=== PATIENT | male | born 1985 | race Caucasian/White ===

== ENCOUNTER 2018-01-11 08:02 | Emergency (ER) | payer OTHER ==
[2018-01-11 08:16] VITALS: BP 120/65; PULSE 50; TEMP 98.3; BMI 22.7
--- NOTE | 2018-01-11 08:42 | PDOC ---
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 report pain along the 4th finger. 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 worse with: movement Associated Symptoms: reports: denies symptoms. denies: weakness Aspirin Received prior to arrival: Yes: no aspirin today Past History - Past Medical History Allergies/Adverse Reactions: Allergies Allergy/AdvReac Type Severity Reaction Status Date / Time No Known Allergies Allergy Verified 01/11/18 08:16 Home Medications: Ambulatory Orders Ibuprofen 800 mg PO TID PRN #20 tablet 01/11/18 - Suicide/Smoking/Psychosocial Hx Smoking History: Never smoked Have you smoked in the past 12 months: No Information on smoking cessation initiated: No Hx Alcohol Use: No Drug/Substance Use Hx: No Review of Systems - Review of Systems Able to Perform ROS?: Yes Is the patient limited Pashto proficient: Yes Constitutional: No: Chills, Diaphoresis, Fever, Loss of Appetite, Malaise, Night Sweats, Weakness, Weight Stable, Unintentional Wgt. Loss, Unexplained wgt Loss, Other HEENTM: No: Eye Pain, Blurred Vision, Tearing, Recent change in vision, Double Vision, Cataracts, Ear Pain, Ocular Prothesis, Ear Discharge, Nose Pain, Nose Congestion, Tinnitus, Nose Bleeding, Hearing Loss, Throat Pain, Throat Swelling , Mouth Pain, Dental Problems, Difficulty Swallowing, Mouth Swelling, Other Respiratory: No: Cough, Orthopnea, Shortness of Breath, SOB with Exertion, SOB at Rest, Stridor, Wheezing, Productive cough, Hemoptysis, Other Cardiac (ROS): No: Chest Pain, Edema, Irregular Heart Rate, Lightheadedness, Palpitations, Syncope, Chest Tightness, Other ABD/GI: No: Abdominal Distended, Abd. Pain w/ defecation, Blood Streaked Bowels , Constipated, Diarrhea, Difficulty Swallowing, Nausea, Poor Appetite, Poor Fluid Intake, Rectal Bleeding, Vomiting, Indigestion, Abdominal cramping, Tarry Stools, Other : No: Burning, Dysuria, Discharge, Frequency, Flank Pain, Hematuria, Incontinence, Pain, Urgency, Testicular Mass, Testicular Swelling, Lesions, Testicular Pain, Other Musculoskeletal: Yes: Joint Swelling (right hand), Muscle Pain (right hand). No : Muscle Weakness Integumentary: No: Bruising, Change in Color, Change in Hair/Nails, Dryness, Erythema, Flushing, Lesions, Lumps, Pallor, Pruritus, Rash, Sweating, Other Neurological: No: Headache, Numbness, Paresthesia, Pre-Existing Deficit, Seizure , Tingling, Tremors, Weakness, Unsteady Gait, Ataxia, Dizziness, Other Psychiatric: No: Anxiety, Depression, Frequent Crying, Stressors, Sleep Pattern Change, Emotional Problems, Mood Swings, Change in Appetite, Other Endocrine: No: Excessive Sweating, Flushing, Intolerance to Cold, Intolerance to Heat, Increased Hunger, Increased Thirst, Increased Urine, Unexplained Weight Gain, Unexplained Weight Loss, Change in Weight, Other Hematologic/Lymphatic: No: Anemia, Blood Clots, Easy Bleeding, Easy Bruising, Bleeding Diathesis, Lymph Node Abnormalities, Swollen Glands, Other *Physical Exam - Vital Signs Last Vital Signs Temp Pulse Resp BP Pulse Ox 98.3 F 50 L 18 120/65 100 01/11/18 08:13 01/11/18 08:13 01/11/18 08:13 01/11/18 08:13 01/11/18 08:13 - Physical Exam General Appearance: Yes: Nourished, Appropriately Dressed. No: Apparent Distress HEENT: positive: EOMI, LUCY, Normal ENT Inspection, TMs Normal, Pharynx Normal Neck: positive: Trachea midline, Supple. negative: Tender Respiratory/Chest: positive: Lungs Clear, Normal Breath Sounds. negative: Respiratory Distress, Accessory Muscle Use Cardiovascular: positive: Regular Rhythm, Regular Rate, S1, S2 Gastrointestinal/Abdominal: positive: Normal Bowel Sounds Musculoskeletal: positive: Normal Inspection, Other (moderate tenderness over 4th metacarpal bone of right hand. 5/5 muscle strength to right hand). negative : Decreased Range of Motion Extremity: positive: Normal Capillary Refill, Swelling (mild swelling to dorsal aspect of right hand ). negative: Normal Inspection Neurologic: positive: Fully Oriented, Normal Mood/Affect, Normal Response, Motor Strength 5/5 Procedures - Splinting Splint Location: Right: Hand (short arm and wrist splint ) Pre-Proc Neuro Vasc Exam: normal Pre-Made Type: pre-frab splint Splint Type: Yes: Wrist Post-Proc Neuro Vasc Exam: normal Hung Bandage: no Sling: No Complications: No Post splint xray: No Good repositioning: Yes ED Treatment Course - RADIOLOGY Radiology Studies Ordered: Category Date Time Status HAND- RIGHT [RAD] Stat Radiology 01/11/18 08:36 Ordered Medical Decision Making - Medical Decision Making 01/11/18 08:43 Patient with right hand swelling and pain s/p twisting hand. likely muscle strain. x-rays of right hand ordered. treat based on imaging results 01/11/18 09:10 x-rays of right hand shows non-displaced oblique fracture of 4th metacarpal bone. hand splint to be applied and referral to orthopedics *DC/Admit/Observation/Transfer Diagnosis at time of Disposition: Metacarpal bone fracture Qualifiers: Encounter type: initial encounter Metacarpal bone: fourth Fracture type: closed Metacarpal location: shaft Fracture alignment: nondisplaced Laterality: right Qualified Code(s): S62.354A - Nondisplaced fracture of shaft of fourth metacarpal bone, right hand, initial encounter for closed fracture - Discharge Dispostion Disposition: HOME Condition at time of disposition: Stable Decision to Admit order: No - Prescriptions Prescriptions: Ibuprofen 800 mg PO TID PRN #20 tablet PRN Reason: Pain - Referrals Referrals: Justin Smith MD [Staff Physician] - - Patient Instructions Printed Discharge Instructions: DI for a Hand Fracture Additional Instructions: keep splint on until orthopedics follow-up. take ibuprofen as needed for pain. rest hand - Post Discharge Activity
== END 2018-01-11 09:20 | disposition home or self-care (01) ==
LOC: JER 08:02 → JERFT 08:02
PROC: 2W3CX1Z Immobilization of Right Lower Arm using Splint (ICD-10-PCS; principal; 2018-01-11)
DX: S62.354A Nondisplaced fracture of shaft of fourth metacarpal bone, right hand, initial encounter for closed fracture (principal); W29.8XXA Contact with other powered hand tools and household machinery, initial encounter; Y93.H3 Activity, building and construction; Y92.69 Other specified industrial and construction area as the place of occurrence of the external cause; Y99.0 Civilian activity done for income or pay
CPT/HCPCS: 29125; 73130-TC-RT-FY; 99281-25

== ENCOUNTER 2018-05-30 16:56 | Emergency (ER) | payer OTHER ==
[2018-05-30 17:00] VITALS: BP 114/64; PULSE 64; TEMP 97; BMI 26.6
--- NOTE | 2018-05-30 18:08 | PDOC ---
History of Present Illness - General Chief Complaint: Laceration Stated Complaint: LACERATION History Source: Patient Exam Limitations: No Limitations - History of Present Illness Initial Comments: 05/30/18 18:03 Patient is a 32 year old male with no pmhx c/o laceration to the right hand since 9am after getting it caught on a grinder machine knife setter. Tetanus is UTD PMHX: neg PSOCHX: neg cig, occ etoh, neg durgs ALL: NKDA GENERAL/CONSTITUTIONAL: [No fever or chills. No weakness. No weight change.] HEAD, EYES, EARS, NOSE AND THROAT: [No change in vision. No ear pain or discharge. No sore throat.] CARDIOVASCULAR: [No chest pain or shortness of breath.] RESPIRATORY: [No cough, wheezing, or hemoptysis.] GASTROINTESTINAL: [No nausea, vomiting, diarrhea or constipation. No rectal bleeding.] MUSCULOSKELETAL: [No joint or muscle swelling or pain. No neck or back pain.] SKIN AND BREASTS: [No rash or easy bruising.] ALLERGIC/IMMUNOLOGIC: [No hives or skin allergy. No latex allergy.] GENERAL: [The patient is awake, alert, and fully oriented, in no acute distress. ] HEAD: [Normal with no signs of trauma.] EYES: [Pupils equal, round and reactive to light, extraocular movements intact, sclera anicteric, conjunctiva clear.] ENT: [Ears normal, Moist mucous membranes.] LUNGS: [Breath sounds equal, clear to auscultation bilaterally. No wheezes, and no crackles.] HEART: [Regular rate and rhythm, normal S1 and S2 without murmur, rub.] EXTREMITIES: [Normal range of motion, no edema. No clubbing or cyanosis. No cords, erythema, or tenderness.] NEUROLOGICAL: [Cranial nerves II through XII grossly intact. Normal speech, normal gait.] PSYCH: [Normal mood, normal affect.] SKIN: 2.7 cm laceration to the right hand over the 2nd MT dorsal aspect hand. no rashes or lesions noted.] Past History - Past Medical History Allergies/Adverse Reactions: Allergies Allergy/AdvReac Type Severity Reaction Status Date / Time No Known Allergies Allergy Verified 05/30/18 17:00 Home Medications: Ambulatory Orders NK [No Known Home Medication] 05/30/18 COPD: No - Suicide/Smoking/Psychosocial Hx Smoking History: Never smoked Have you smoked in the past 12 months: No Hx Alcohol Use: No Drug/Substance Use Hx: No *Physical Exam - Vital Signs Last Vital Signs Temp Pulse Resp BP Pulse Ox 97 F L 64 18 114/64 98 05/30/18 16:58 05/30/18 16:58 05/30/18 16:58 05/30/18 16:58 05/30/18 16:58 Moderate Sedation - Procedure Monitoring Vital Signs: Procedure Monitoring Vital Signs Temperature 97 F L 05/30/18 16:58 Pulse Rate 64 05/30/18 16:58 Respiratory Rate 18 05/30/18 16:58 Blood Pressure 114/64 05/30/18 16:58 O2 Sat by Pulse Oximetry (%) 98 05/30/18 16:58 Procedures - Laceration/Wound Repair Right Dorsal Hand 2nd digit Wound Length: 2.6 to 5.0 cm Wound's Depth, Shape: superficial, linear Irrigated w/ Saline: Yes Betadine Prep: Yes Anesthesia: 1% Lidocaine Wound Repaired With: Sutures Suture Size/Type: 4:0, nylon Sterile Dressing Applied: Yes Medical Decision Making - Medical Decision Making 05/30/18 18:03 Patient is a 32 year old male with no pmhx c/o laceration to the right hand since 9am after getting it caught on a grinder machine knife setter. I discussed the physical exam findings, ancillary test results and final diagnoses with the patient. I answered all of the patient's questions. The patient was satisfied with the care received and felt comfortable with the discharge plan and treatment plan. The Patient agrees to follow up with the primary care physician within 24-72 hours. *DC/Admit/Observation/Transfer Diagnosis at time of Disposition: Laceration - Discharge Dispostion Disposition: HOME Condition at time of disposition: Stable - Referrals - Patient Instructions Printed Discharge Instructions: DI for Laceration Repair Additional Instructions: Follow up in 2 days for wound check in the Fast Track are of the ED and suture removal in 10 days. Keep the area clean and dry. For warmth, pain and discharge, from the wound return to the ED immediately. - Post Discharge Activity
== END 2018-05-30 18:22 | disposition home or self-care (01) ==
LOC: JERFT 16:56
PROC: 0HQFXZZ Repair Right Hand Skin, External Approach (ICD-10-PCS; principal; 2018-05-30)
DX: S61.411A Laceration without foreign body of right hand, initial encounter (principal); W31.89XA Contact with other specified machinery, initial encounter; Y93.89 Activity, other specified; Y92.89 Other specified places as the place of occurrence of the external cause; Y99.8 Other external cause status
CPT/HCPCS: 12001; 99281-25